=== PATIENT | female | born 1995 | race Caucasian/White ===

== ENCOUNTER 2018-03-03 14:28 | Inpatient (IN) | payer OTHER ==
[2018-03-03 15:05] VITALS: BMI 46.0
--- NOTE | 2018-03-03 15:08 | PDOC.LDHP ---
Labor and Delivery H&P Chief complaint: contractions HPI: 22 yo @ 39.3wks by LMP c/w 29.6wk US presents with contractions. Patient stated that the contractions started around 11 this morning and woke her up from her sleep. She says they are nonpainful but have been occurring regularly over the course of the day. She denies any associated nausea, headache, visions changes, bleeding or vaginal discharge other than her mucus plug. Patient was seen in clinic by Dr. Panchal yesterday and was noted to be 3cm dilated and had her membranes stripped. Current gestational age (weeks): 39 (39.3) Due date: 03/07/18 Dating criteria: last menstrual period (c/w 29.6wk US) Grav: 1 Para: 0 OB History Details: none Current complications: other (glucose intolerance w/ 1 hr GTT BG of 153) Abnormal US findings: No Current medications: pre- vitamins Previous surgical history: none Social history: none - Physical Exam Vital signs reviewed and normal: yes General: NAD Heart: RRR Lungs: nonlabored breathing Abdomen: gravid Extremeties: no edema FHT: category 2 (minimal variability) [place] contractions every: 5-10 minutes - Vaginal Exam cm dilated: 4 Effacement: 50% Station: -3 (@ 1445) - OB Labs Blood type: A RH: positive Antibody Screen: negative HIV: negative RPR: negative HEPSAg: negative 1 hour GCT: positive (154) GBS: positive Urine drug screen: not done Rubella: immune - Assessment 22YO @ 39.3 weeks by LMP consistent with 29.6 week US who presents with a chief complaint of contractions that have been occurring regularly since 11AM this morning. - Plan -: Plan: 1. SIUP presenting with contractions in latent labor: - OBS in L&D for 2 hrs and recheck for cervical change. - category 2 strip, will PO challenge and continue to monitor via NST. - likely will d/c home if no change after 2 hours. 2. glucose intolerance: - 1hr GTT elevated at 153. - late to care & did not f/u with 3 hr GTT. - Per patient BG levels have been WNL at last several clinic visits. 3. Obesity: - Will counselor aide on diet and exercise. 4. GBS + : - Aware. - Will initiate treatment only if patient is admitted. This H&P was completed with Janine Roberts MD. <Elza Brownlee - Last Filed: 03/03/18 16:05> <Dorothea Stern - Last Filed: 03/03/18 17:28> Allergies/Adverse Reactions: Allergies Allergy/AdvReac Type Severity Reaction Status Date / Time No Known Allergies Allergy Verified 03/03/18 15:01 Attending Addendum - Attending Addendum Date/Time: 03/03/18 8160 I personally evaluated the patient and discussed the management with Dr. Gardner /Armando I agree with the History, Examination, Assessment and Plan documented above with any addition or exceptions noted below- 22 yo @ 39.1 weeks presented c /o ctx every 5-6 minutes, not-painful. Denies any LOF, VB. (+) FM. Afebrile VSS. SVE 4/50%/-3; FHTs- 145/min-mod variability/(+) accels/ no decels [place]- ctx q6-7 minutes. A/P: 1) IUP @39.1 weeks with contractions - recheck in 2 hours. FHTs- Category 2 improved after juice and crackers to Category 1 <Dorothea Stern - Last Filed: 03/03/18 17:28>
--- NOTE | 2018-03-03 20:14 | PDOC.LDPN ---
Labor & Delivery Progress Note - Subjective Subjective: comfortable, vaginal pressure - Objective Vital signs reviewed and normal: yes (one isolated inc. in BP systolic 141, but other pressures have been WNL.) General: NAD, resting Uterine fundus: non tender Dilation: 5 Effacement: 75% Station: -1 FHT: category 1 (150/mod/+accels) [place] contractions every: inadequate ctx - Assessment (1) Term Code(s): Z34.80 - ENCOUNTER FOR SUPRVSN OF NORMAL , UNSP TRIMESTER Current Visit: Yes Status: Acute (2) Glucose intolerance Code(s): E74.39 - OTHER DISORDERS OF INTESTINAL CARBOHYDRATE ABSORPTION Current Visit: Yes Status: Acute (3) Obesity Code(s): E66.9 - OBESITY, UNSPECIFIED Current Visit: Yes Status: Acute Plan: continue plan of care -: 22 @ 39.3 weeks by LMP consistent w/ 29.6wk US here for reported contractions and now with cervical changes. 1. IUP, patiño, term, primigravida - @ 20:00 -short period of minimum variability will order BPP 2. Glucose intolerance vs. questionable A1GDM -Clinic records show failed 1hr GTT, unable to complete 3hrGTT, patient did not bring in home glucose logs -Glucose logs have been WNL in clinic 3. Maternal obesity 4. Increased BP without h/o of chronic or gestational hypertension -Isolated BP systolic reading of 141/80 @ 17:23 -Other BP readings have been good in 120s-low 130s -Clinic visit yesterday showed BP of 144/90 -On 02/19 clinic visit BP of 143/93 (37w5d) -Will order preE work up: CBC, CMP, BPP, Protein/Creat ratio 5. LGSIL -Plan for repeat colpo at 6 weeks 6. Late Care 8. GBS positive -PCN when in labor <Constance Kate - Last Filed: 03/03/18 20:53> Attending Addendum - Attending Addendum Date/Time: 03/03/182042 I personally evaluated the patient and discussed the management with Dr. Kate I agree with the History, Examination, Assessment and Plan documented above with any addition or exceptions noted below. Continue current management. Cat 1 to Cat 2 tracing. BPP 04/01. GBS pos will need PCN. [place] <Goldie Bernard - Last Filed: 03/04/18 06:44>
[2018-03-03 21:18] LABS: #Eosinphils 0.1 thou/uL (0.0-0.7); #Lymphocytes 1.6 thou/uL (1.20-3.40); #Monocytes 0.7 thou/uL (0.11-0.59); #Neutrophils 9.9 thou/uL (1.40-6.50); %Basophils 0.2 % (0.0-1.0); %Eosinophils 0.6 % (0.0-10.0); %Lymphocytes 13.2 % (21.0-51.0); Hemoglobin 12.8 g/dL (12.0-16.0); Mean Corpuscular HGB CONC 34.9 g/dL (32.0-36.0); Mean Corpuscular Hemoglobin 29.8 pg (27.0-31.0); Mean Corpuscular Volume 85.2 fL (78.0-98.0); Mean Platelet Volume 8.5 fL (7.4-10.4); Platelet Count 232 thou/uL (130-400); RBC Distribution Width 13.3 % (11.5-14.5); White Blood Cell (WBC) Count 12.4 thou/uL (4.8-10.8)
[2018-03-03 21:36] LABS: ALT (SGPT) 9 U/L (8-55); AST (SGOT) 10 U/L (5-34); Albumin 3.2 g/dL (3.5-5.0); Alkaline Phosphatase 98 U/L (40-150); Anion Gap 12 mmol/L (10-20); BUN (Urea Nitrogen) 9 mg/dL (7.0-18.7); Bilirubin, Total 0.2 mg/dL (0.2-1.2); Calc. Creatinine Clearance 281 mL/min (70-130); Calcium 9.1 mg/dL (7.8-10.44); Carbon Dioxide 20 mmol/L (22-29); Chloride 108 mmol/L (98-107); Estimated GFR-MDRD Greater than 90; Globulin 2.8 g/dL (2.4-3.5); Glucose 96 mg/dL (70-105); Potassium 3.9 mmol/L (3.5-5.1); Sodium 136 mmol/L (136-145)
--- NOTE | 2018-03-03 21:38 | ULT ---
BIOPHYSICAL PROFILE 03/03/18 COMPARISON: None. HISTORY: 22-year-old female with a nonreassuring FHT. TECHNIQUE: Limited sonographic assessment of the gravid uterus obtained to perform a biophysical profile. FINDINGS: A single intrauterine gestation is present demonstrating a vertex presentation. The placenta is locat ed anteriorly with no evidence for previous or abruption. heart rate is 149 beats per minute. Amniotic fluid index is 7.1 cm. The locomotive crane operator helper reports 2 out of 2 score for tone, breath ing, movement and amniotic fluid. IMPRESSION: Live intrauterine gestation demonstrating a normal 8 out of 8 biophysical profile. POS: [facility]
--- NOTE | 2018-03-03 22:47 | PDOC.LDPN ---
Labor & Delivery Progress Note - Subjective Subjective: comfortable, vaginal pressure, no concerns - Objective Vital signs reviewed and normal: yes General: NAD, resting Uterine fundus: non tender Dilation: 6 Effacement: 75% Station: -1 FHT: category 1 (150/mod/+accels) - Assessment (1) Term Code(s): Z34.80 - ENCOUNTER FOR SUPRVSN OF NORMAL , UNSP TRIMESTER Current Visit: Yes Status: Acute (2) Glucose intolerance Code(s): E74.39 - OTHER DISORDERS OF INTESTINAL CARBOHYDRATE ABSORPTION Current Visit: Yes Status: Acute (3) Obesity Code(s): E66.9 - OBESITY, UNSPECIFIED Current Visit: Yes Status: Acute (4) Active labor at term Code(s): PLF1029 - Current Visit: Yes Status: Acute Plan: continue plan of care -: 22 @ 39.3 weeks by LMP consistent w/ 29.6wk US here for reported contractions and now with cervical changes. 1. IUP, patiño, term, primigravida, Active labor - @ 2230 -BPP 04/01 -6cm dilated, +contractions -Will admit for active labor and plan to start pitocin -Discussed with patient who agrees with plan 2. Glucose intolerance vs. questionable A1GDM -Clinic records show failed 1hr GTT, unable to complete 3hrGTT, patient did not bring in home glucose logs -Glucose logs have been WNL in clinic 3. Maternal obesity 4. Increased BP without h/o of chronic or gestational hypertension -Isolated BP systolic reading of 141/80 @ 17:23 -Other BP readings have been good in 120s-low 130s -Clinic visit yesterday showed BP of 144/90 -On 02/19 clinic visit BP of 143/93 (37w5d) -Reviewed preE workup labs-all were wnl 5. LGSIL -Plan for repeat colpo at 6 weeks 6. Late Care 8. GBS positive -Initiating PCN ppx, first dose <Constance Kate - Last Filed: 03/03/18 23:28> Attending Addendum - Attending Addendum Date/Time: 03/03/18 4480 I personally evaluated the patient and discussed the management with Dr. Kate I agree with the History, Examination, Assessment and Plan documented above with any addition or exceptions noted below. Tracing reassuring, but continue close monitoring. Intermittent cat 2. Now 6 cm. Will augment with pitocin as needed. GBS pos now on PCN [place] <Goldie Bernard - Last Filed: 03/04/18 06:48>
[2018-03-03 23:04] LABS: Creatinine, Urine 42.04 mg/dL (47-110); Protein, Urine Random Quant Less than 10 mg/dL
[2018-03-03] MEDS ORDERED: Ibuprofen 800 MG TAB PO PRN (23:11)
[2018-03-03] MEDS ORDERED: NS / Oxytocin 40 units/1000ml 1,000 ML IV PRN (23:11)
[2018-03-03] MEDS ORDERED: Ondansetron HCl/PF 4 MG/2 ML Vial IVP PRN (23:11)
[2018-03-03] MEDS ORDERED: Lidocaine 1% (PF) 30 ML VIAL SC PRN (23:11)
[2018-03-03] MEDS ORDERED: Acetaminophen 500 MG TAB PO PRN (23:11)
[2018-03-03] MEDS ORDERED: Penicillin G Potassium 5 MILL.UNITS in Sodium Chloride 0.9% 100 ML IVPB SCH (23:15)
[2018-03-04] MEDS: Lactated Ringer's 1,000 ML IV SCH ×3 (00:15→07:25)
[2018-03-04] MEDS ORDERED: Penicillin G 2.5 MILL.units 2.5 MILL.UNITS in Premix Bag 1 BAG IVPB SCH (01:00)
[2018-03-04 01:20] LABS: HBSAg Index 0.15 S/CO (0-0.99); HIV (1/2) Antibody/Antigen Non-Reactive (NonReactive); Hep B Surf Ag Non-Reactive S/CO (NonReactive); Syphilis Antibody Nonreactive (Nonreactive); Syphilis Antibody Index 0.06 S/CO (<1.00 Non-Reactive)
--- NOTE | 2018-03-04 01:35 | PDOC.LDPN ---
Labor & Delivery Progress Note - Subjective Subjective: comfortable - Objective Vital signs reviewed and normal: yes General: NAD, resting FHT: category 1 (140/mod/+accels) - Assessment (1) Term Code(s): Z34.80 - ENCOUNTER FOR SUPRVSN OF NORMAL , UNSP TRIMESTER Current Visit: Yes Status: Acute (2) Glucose intolerance Code(s): E74.39 - OTHER DISORDERS OF INTESTINAL CARBOHYDRATE ABSORPTION Current Visit: Yes Status: Acute (3) Obesity Code(s): E66.9 - OBESITY, UNSPECIFIED Current Visit: Yes Status: Acute (4) Active labor at term Code(s): [id number] - Current Visit: Yes Status: Acute Plan: continue plan of care -: 22 @ 39.3 weeks by LMP consistent w/ 29.6wk US here for reported contractions and now with cervical changes. 1. IUP, patiño, term, primigravida, Active labor - @ 2230 -BPP 04/01 -6cm dilated, +contractions -Patient is doing well, reports feeling increased contractions -Stated desire to not start pitocin at this time and allow for labor to proceed naturally 2. Glucose intolerance vs. questionable A1GDM -Clinic records show failed 1hr GTT, unable to complete 3hrGTT, patient did not bring in home glucose logs -Glucose logs have been WNL in clinic 3. Maternal obesity 4. Increased BP without h/o of chronic or gestational hypertension -Isolated BP systolic reading of 141/80 @ 17:23 -Other BP readings have been good in 120s-low 130s -Clinic visit yesterday showed BP of 144/90 -On 02/19 clinic visit BP of 143/93 (37w5d) -Reviewed preE workup labs-all were wnl 5. LGSIL -Plan for repeat colpo at 6 weeks 6. Late Care 8. GBS positive -Received first dose of PCN -Ordered next dose at 5:00am <Constance Kate - Last Filed: 03/04/18 01:35> Attending Addendum - Attending Addendum Date/Time: 03/04/18 0148 I personally evaluated the patient and discussed the management with Dr. Kate I agree with the History, Examination, Assessment and Plan documented above with any addition or exceptions noted below. Now 39.4 wks. Will start PCN for augmentation. Continue to monitor closely. Cat 1 tracing but still with intermittent cat 2. Continue PCN. [place] <Goldie Bernard - Last Filed: 03/04/18 06:50>
--- NOTE | 2018-03-04 04:44 | PDOC.LDPN ---
Labor & Delivery Progress Note - Subjective Subjective: comfortable - Objective Vital signs reviewed and normal: yes General: NAD, resting Uterine fundus: non tender Dilation: 6-7 Effacement: 75% Station: -1 FHT: category 1 (150/mod/+accels) Other exam findings: intact, fetus cephalic - Assessment (1) Term Code(s): Z34.80 - ENCOUNTER FOR SUPRVSN OF NORMAL , UNSP TRIMESTER Current Visit: Yes Status: Acute (2) Glucose intolerance Code(s): E74.39 - OTHER DISORDERS OF INTESTINAL CARBOHYDRATE ABSORPTION Current Visit: Yes Status: Acute (3) Obesity Code(s): E66.9 - OBESITY, UNSPECIFIED Current Visit: Yes Status: Acute (4) Active labor at term Code(s): LTE3068 - Current Visit: Yes Status: Acute Plan: labor augmentation -: 22 @ 39.4 weeks by LMP consistent w/ 29.6wk US here for reported contractions and now with cervical changes. 1. IUP, patiño, term, primigravida, Active labor -6.5/75/-1 @ 4:30 -BPP 8 -Inadequate contractions, labor augmented with pitocin per protocol -Patient is doing well, reports feeling increased contractions -Planning on epidural for pain 2. Glucose intolerance vs. questionable A1GDM -Clinic records show failed 1hr GTT, unable to complete 3hrGTT, patient did not bring in home glucose logs -Glucose logs have been WNL in clinic -Bedside glucose checks have been wnl 3. Maternal obesity -Recommend diet, exercise and breast feeding 4. Increased BP without h/o of chronic or gestational hypertension -Isolated BP systolic reading of 141/80 @ 17:23 -Other BP readings have been good in 120s-low 130s -Clinic visit yesterday showed BP of 144/90 -On 02/19 clinic visit BP of 143/93 (37w5d) -Reviewed preE workup labs-all were wnl -Remains asymptomatic 5. LGSIL -Plan for repeat colpo at 6 weeks 6. Late Care 8. GBS positive -Received first dose of PCN -Ordered next dose at 5:00am <Constance Kate - Last Filed: 03/04/18 04:44> Attending Addendum - Attending Addendum Date/Time: 03/04/18 8252 I personally evaluated the patient and discussed the management with Dr. Kate I agree with the History, Examination, Assessment and Plan documented above with any addition or exceptions noted below. Now 39.4 wks Making slow change. Not able to augment at this time with pitocin due to intermittent cat 2 tracing. On PCN. Continue maternal resuscitation measures as needed. [place] <Goldie Bernard - Last Filed: 03/04/18 06:52>
[2018-03-04] MEDS ORDERED: NS w/ Oxytocin 10 units 500 ML IV SCH (04:45)
[2018-03-04] MEDS: Penicillin G 2.5 MILL.units 2.5 MILL.UNITS in Premix Bag 1 BAG IVPB SCH ×2 (04:52→08:32)
--- NOTE | 2018-03-04 05:35 | PDOC.LDPN ---
Labor & Delivery Progress Note - Objective Vital signs reviewed and normal: yes - Assessment (1) Active labor at term Code(s): [id number] - Current Visit: Yes Status: Acute (2) Term Code(s): Z34.80 - ENCOUNTER FOR SUPRVSN OF NORMAL , UNSP TRIMESTER Current Visit: Yes Status: Acute (3) Glucose intolerance Code(s): E74.39 - OTHER DISORDERS OF INTESTINAL CARBOHYDRATE ABSORPTION Current Visit: Yes Status: Acute (4) Obesity Code(s): E66.9 - OBESITY, UNSPECIFIED Current Visit: Yes Status: Acute -: A&P: 23YO @ 39.4 weeks by LMP consistent w/ 29.6 wk U/S who presented to L&D yesterday due to contractions that started around 11AM yesterday now with cervical changes. 1. SIUP, term, primagravida, active labor 2. glucose intolerance vs. questionable A1GDM 3. maternal obesity 4. Increased BP without h/o chronic or gestational HTN 5. GBS + 6. LGISL 7. late care
--- NOTE | 2018-03-04 06:04 | PDOC.LDPN ---
Labor & Delivery Progress Note - Subjective Subjective: painful contractions - Objective Vital signs reviewed and normal: yes General: resting, breathing through contractions Uterine fundus: palpable contractions Dilation: 6 Effacement: 90% Station: 0 FHT: category 2, late decelerations, absent or minimal variables [place] contractions every: every 3min AROM: clear fluid IUPC placed: yes FSE placed: yes Resuscitative measures: maternal oxygen, maternal IV fluids, maternal position change - Assessment (1) Term Code(s): Z34.80 - ENCOUNTER FOR SUPRVSN OF NORMAL , UNSP TRIMESTER Current Visit: Yes Status: Acute (2) Glucose intolerance Code(s): E74.39 - OTHER DISORDERS OF INTESTINAL CARBOHYDRATE ABSORPTION Current Visit: Yes Status: Acute (3) Obesity Code(s): E66.9 - OBESITY, UNSPECIFIED Current Visit: Yes Status: Acute (4) Active labor at term Code(s): [id number] - Current Visit: Yes Status: Acute -: 22 @ 39.4 weeks by LMP consistent w/ 29.6wk US here for reported contractions and now with cervical changes. 1. IUP, patiño, term, primigravida, Active labor -/0 @6:00 -BPP /8 -AROM at 6:05, clear, placed in IUPS, FES -Category 2 strip with maternal resuscitation, will reassess in 30min 2. Glucose intolerance vs. questionable A1GDM -Clinic records show failed 1hr GTT, unable to complete 3hrGTT, patient did not bring in home glucose logs -Glucose logs have been WNL in clinic -Bedside glucose checks have been wnl 3. Maternal obesity -Recommend diet, exercise and breast feeding 4. Increased BP without h/o of chronic or gestational hypertension -Isolated BP systolic reading of 141/80 @ 17:23 -Other BP readings have been good in 120s-low 130s -Clinic visit yesterday showed BP of 144/90 -On 02/19 clinic visit BP of 143/93 (37w5d) -Reviewed preE workup labs-all were wnl -Remains asymptomatic 5. LGSIL -Plan for repeat colpo at 6 weeks 6. Late Care 8. GBS positive -Received first dose of PCN <Constance Kate - Last Filed: 03/04/18 06:04> Attending Addendum - Attending Addendum Date/Time: 03/04/18 0653 I personally evaluated the patient and discussed the management with Dr. Kate I agree with the History, Examination, Assessment and Plan documented above with any addition or exceptions noted below. 22 yo female at 39.4 wks Cat 2 tracing with minimal variability. AROM with clear fluid. FSE and IUPC placed. Fetus responded to scalp stim easily. Now cat 1. Continue close monitoring. Discussed risk and possible complications with patient. Understands possibility of need for delivery. Position change, IVFs, maternal O2. No longer having elevated BP. Now s/p 2nd dose of PCN, adequately treated. [place] <Goldie Bernard - Last Filed: 03/04/18 06:57>
[2018-03-04] MEDS ORDERED: Bupivacaine 0.75% 13.4 ML, fentaNYL Citrate/PF 400 MCG in Sodium Chloride 0.9% 78.6 ML EPIDURAL SCH ×2 (06:30→11:15)
[2018-03-04] MEDS ORDERED: Butorphanol Tartrate 1 MG/ML VIAL ONE (07:03)
[2018-03-04] MEDS ORDERED: Butorphanol Tartrate 1 MG/ML VIAL SLOW IVP PRN (07:03)
--- NOTE | 2018-03-04 08:11 | PDOC.LDPN ---
Labor & Delivery Progress Note - Subjective Subjective: comfortable, other (Comfortable with epidural) - Objective Vital signs reviewed and normal: yes General: resting Uterine fundus: non tender Dilation: 6.5 Effacement: 100% Station: -1 FHT: category 2 (2 minute to sara of 70 while on her back and five minutes later 1.5 minute decel to sara of 90. Variability maintained. ), early decelerations, variability present [place] contractions every: 2-3 minutes Resuscitative measures: maternal position change (On her back at time of decels. ) - Assessment (1) Active labor at term Code(s): [id number] - Current Visit: Yes Status: Acute Comment: Has not made significant change since last check Johanne spontaneously but MVUs not adequate Unable to start pitocin to augment at this time due to cat II tracing. Tracing is overall reassuring Attempt to start pitocin once tracing is reassuring GBS positive on prophylaxis Plan: continue plan of care, pitocin for augmentation, resuscitative measures
[2018-03-04] MEDS ORDERED: NS / Oxytocin 40 units/1000ml 1,000 ML ONE (08:59)
[2018-03-04] MEDS ORDERED: Lidocaine 1% (PF) 30 ML VIAL ONE (08:59)
[2018-03-04] MEDS ORDERED: ePHEDrine/0.9% NaCl/PF SYRINGE 50 mg/10 ml SLOW IVP PRN (10:54)
[2018-03-04] MEDS ORDERED: Lactated Ringer's 500 ML IV PRN (10:54)
[2018-03-04] MEDS ORDERED: Naloxone HCl 0.4 mg/ml Vial IVP PRN ×2 (10:54)
[2018-03-04] MEDS ORDERED: Eucerin (Mineral Oil/Petrolatum,White) 30 gm Jar TOP PRN (10:54)
[2018-03-04] MEDS ORDERED: diphenhydrAMINE 50 MG/ML VIAL IVP PRN (10:54)
[2018-03-04] MEDS ORDERED: Ondansetron HCl/PF 4 MG/2 ML Vial IVP PRN (10:54)
[2018-03-04] MEDS ORDERED: Acetaminophen 325 MG TAB PO PRN (10:54)
[2018-03-04] MEDS ORDERED: Promethazine HCl 25 MG/ML VIAL IM PRN (10:54)
[2018-03-04] MEDS ORDERED: Communication Order-Pharmacy FS SCH (11:00)
[2018-03-04] MEDS ORDERED: fentaNYL Citrate/PF 400 MCG, Bupivacaine 0.5% 20 ML in Sodium Chloride 0.9% 72 ML EPIDURAL SCH (11:00)
--- NOTE | 2018-03-04 11:40 | PDOC.OPDEL ---
OB Operative/Delivery Note Delivery Dr/Surgeon: Abdulkadir Assist: Armando Pre-Delivery Diagnosis: active labor Procedure/Post Delivery Dx: spontaneous vaginal delivery Weeks gestation: 39 Anesthesia: epidural - Findings A - 1 min: 8 - 5 min: 9 - Additional Findings/Plan Placenta delivered: spontaneous Repaired Obstetrical Laceration: 2nd degree (2nd degree laceration repaired in usual fashion using 3-0 vicryl. Left labial repaired in running fashion using 3- 0 vicryl) Estimated blood loss: 300 Compilations/Other Findings: Uncomplicated at term of viable male fetus in OA position. Post delivery plan: routine recovery
[2018-03-04] MEDS ORDERED: Adacel (T-DAP) 0.5 ML VIAL IM ONE (12:33)
[2018-03-04] MEDS ORDERED: Milk Of Magnesia 30 ML UDCUP PO PRN (12:33)
[2018-03-04] MEDS ORDERED: diphenhydrAMINE 25 MG CAP PO PRN (12:33)
[2018-03-04] MEDS ORDERED: Lanolin Ointment 7 GM TUBE TOP PRN (12:33)
[2018-03-04] MEDS ORDERED: Bisacodyl 10 MG SUPP PR PRN (12:33)
[2018-03-04] MEDS ORDERED: NS / Oxytocin 40 units/1000ml 1,000 ML IV SCH (12:33)
[2018-03-04] MEDS ORDERED: Benzocaine/Menthol 20-0.5% 60 ML CAN TOP PRN (12:33)
[2018-03-04] MEDS: Ibuprofen 800 MG TAB PO SCH ×2 (14:59→21:54)
[2018-03-04] MEDS: Ferrous Sulfate 325 MG TAB PO SCH (16:56)
[2018-03-04] MEDS: Docusate Calcium (SURFAK) 240 MG CAP PO SCH (21:54)
--- NOTE | 2018-03-05 05:34 | PDOC.PP ---
Post Progress Note Post Day #: 1 Subjective: Patient states that she feels well and states that baby is doing well. Only has pain when she urinates. Is voiding spontaneously without any trouble. Has been up and walking this morning and is passing gas but has not yet had a BM. Denies passing any large clots but is still having vaginal bleeding comparable to blood loss during her period. States she has been doing ok with breast feeding. Has had more success with left breast compared to the right. PO intake tolerated: yes Flatus: yes Ambulation: yes Vital Signs (12 hours) Temp Pulse Resp BP 03/05/18 02:19 98.1 F 85 18 123/59 L 03/05/18 00:00 98.2 F 85 20 03/04/18 20:10 98.1 F 85 18 117/58 L 03/04/18 20:00 98.2 F 88 20 03/04/18 17:47 98.2 F 88 20 108/59 L Weight Weight 117.934 kg - Physical Examination General: NAD Cardiovascular: RRR Respiratory: clear to auscultation bilaterally, non-labored breathing Abdominal: + bowel sounds, no distention, appropriately TTP (nontender to deep palation) Fundus firm & at: Fundus firm and palpable below the umbilicus Extremities: negative homans (B) Skin: no rash Neurological: no gross focal deficits Psychiatric: A&Ox3, normal affect Result Diagrams: 03/03/18 21:09 03/03/18 21:09 Additional Labs: Post Labs Blood Type A POSITIVE 03/04/18 00:33 Hep Bs Antigen Non-Reactive S/CO (NonReactive) 03/04/18 00:33 (1) Active labor at term Code(s): [id number] - Status: Resolved (2) Term Code(s): Z34.80 - ENCOUNTER FOR SUPRVSN OF NORMAL , UNSP TRIMESTER Status: Resolved (3) Glucose intolerance Code(s): E74.39 - OTHER DISORDERS OF INTESTINAL CARBOHYDRATE ABSORPTION Status : Acute (4) Obesity Code(s): E66.9 - OBESITY, UNSPECIFIED Status: Chronic - Assessment/Plan A&P: 22 YO PP day #1 s/p of a TAGA male fetus. 1. day#1 s/p - Continue carb consistent diet as tolerated. - Passing gas but will continue with stool softener & encourage ambulation to induce a BM. - apartment leasing consultant to see today as patient is a new mom planning to breast feed. - Likely will be able to go home tomorrow AM. 2. Obesity - Encourage diet, weight loss, and breast feeding. - Continue carb consistent. 3. Glucose Intolerance - Resolved. - All BG levels have been WNL since admission. - d/c POC glucose checks <Janine Roberts - Last Filed: 03/05/18 06:32> Vital Signs (12 hours) Temp Pulse Resp BP 03/05/18 08:00 98.6 F 80 18 03/05/18 07:45 98.6 F 80 18 114/59 L 03/05/18 04:00 98.1 F 85 18 03/05/18 02:19 98.1 F 85 18 123/59 L 03/05/18 00:00 98.2 F 85 20 Weight Weight 117.934 kg Result Diagrams: 03/03/18 21:09 03/03/18 21:09 Additional Labs: Post Labs Blood Type A POSITIVE 03/04/18 00:33 Hep Bs Antigen Non-Reactive S/CO (NonReactive) 03/04/18 00:33 (1) Active labor at term Code(s): [id number] - Status: Resolved Comment: Has not made significant change since last check [place] spontaneously but MVUs not adequate Unable to start pitocin to augment at this time due to cat II tracing. Tracing is overall reassuring Attempt to start pitocin once tracing is reassuring GBS positive on prophylaxis <Elma Panchal - Last Filed: 03/05/18 08:41> Attending Addendum - Attending Addendum Date/Time: 03/05/18 0840 I personally evaluated the patient and discussed the management with Dr. Roberts I agree with the History, Examination, Assessment and Plan documented above with any addition or exceptions noted below. 22yo [id number] PPD #1 s/p uncomplicated . Doing well and meeting appropriate milestones. Continue routine care. Anticipate d/c to home tomorrow. <Elma Panchal - Last Filed: 03/05/18 08:41>
[2018-03-05] MEDS: Ibuprofen 800 MG TAB PO SCH ×3 (06:39→21:38)
[2018-03-05] MEDS: Ferrous Sulfate 325 MG TAB PO SCH ×2 (07:22→15:56)
[2018-03-05] MEDS: Docusate Calcium (SURFAK) 240 MG CAP PO SCH ×2 (08:24→21:38)
[2018-03-05] MEDS: Prenatal Vitamin 1 TAB PO SCH (08:24)
[2018-03-05] MEDS ORDERED: Lidocaine 2% MPF 10 ML AMP (For Epidural Use) ONE (15:24)
--- NOTE | 2018-03-06 06:16 | PDOC.PP ---
Post Progress Note Post Day #: 2 Subjective: Patient has no complaints. Says breast feeding is going well and she met with the regulatory consultant yesterday afternoon. Has had a BM and reports mild burning with urination. Ambulating & tolerating food and liquids PO. Reports still having just a scant amount of bleeding. Plans to use Depo for control following discharge. Ok with going home today. Says baby will f/u with Dr. Panchal on Friday and she will f/u with her in 2-4 weeks. PO intake tolerated: yes Flatus: yes Ambulation: yes Vital Signs (12 hours) Temp Pulse Resp BP 03/05/18 20:40 98.1 F 81 22 H 122/60 Weight Weight 117.934 kg - Physical Examination General: NAD Cardiovascular: no m/r/g, RRR Respiratory: clear to auscultation bilaterally, non-labored breathing Abdominal: + bowel sounds, lochia, no distention Skin: no rash Perineum: No gross edema of labia noted on exam. Neurological: no gross focal deficits Psychiatric: A&Ox3, normal affect Result Diagrams: 03/03/18 21:09 03/03/18 21:09 Additional Labs: Post Labs Blood Type A POSITIVE 03/04/18 00:33 Hep Bs Antigen Non-Reactive S/CO (NonReactive) 03/04/18 00:33 (1) Active labor at term Code(s): AFQ4880 - Status: Resolved (2) Term Code(s): Z34.80 - ENCOUNTER FOR SUPRVSN OF NORMAL , UNSP TRIMESTER Status: Resolved (3) Glucose intolerance Code(s): E74.39 - OTHER DISORDERS OF INTESTINAL CARBOHYDRATE ABSORPTION Status : Resolved (4) Obesity Code(s): E66.9 - OBESITY, UNSPECIFIED Status: Chronic QualifierTitle: Obesity type: due to excess calories Obesity classification: adult class 3 (BMI >= 40) Serious obesity comorbidity presence : without serious comorbidity Body mass index: BMI 45.0-49.9 Qualified Code( s): E66.01 - Morbid (severe) obesity due to excess calories; Z68.42 - Body mass index (BMI) 45.0-49.9, adult; Z68.42 - Body mass index (BMI) 45.0-49.9, adult; Z68.42 - Body mass index (BMI) 45.0-49.9, adult; Z68.42 - Body mass index (BMI) 45.0-49.9, adult - Assessment/Plan A&P: 22YO PP day #2 s/p of TAGA male fetus @ 39.4 weeks. 1. day #2 s/p : - Continue ambulating & eating and drinking PO as tolerated. - Continue breast feeding & pumping per regulatory consultant's recs. - f/u with OB/PCP, Dr. Panchal, in 2 weeks. 2. Obesity: - Will encourage to continue breast feeding. - Will encourage regular exercise and weight loss. 3. h/o glucose intolerance: - BG levels have been normal over course of hospital stay - Continue w/ consistent carb diet. <Janine Roberts - Last Filed: 03/06/18 07:05> Weight Weight 117.934 kg Result Diagrams: 03/03/18 21:09 03/03/18 21:09 Additional Labs: Post Labs Blood Type A POSITIVE 03/04/18 00:33 Hep Bs Antigen Non-Reactive S/CO (NonReactive) 03/04/18 00:33 <Goldie Bernard - Last Filed: 03/07/18 08:40> Attending Addendum - Attending Addendum Date/Time: 03/06/18 0838 I personally evaluated the patient and discussed the management with Dr. Roberts I agree with the History, Examination, Assessment and Plan documented above with any addition or exceptions noted below. 22 yo female s/p PPD#2 Doing well. No complaints. Lochia mild. Fundus firm below umbilicus. Nontender. BP WNL. H&H stable. . No evidence of vaginal edema. Laceration healing well. Ok to d/c to home later with infant. Follow up with PCP in 2 wks. [place] <Goldie Bernard - Last Filed: 03/07/18 08:40>
[2018-03-06] MEDS: Ibuprofen 800 MG TAB PO SCH ×2 (06:20→14:10)
[2018-03-06 08:04] VITALS: BP 127/61; TEMP 98.5
[2018-03-06] MEDS: Docusate Calcium (SURFAK) 240 MG CAP PO SCH (09:06)
[2018-03-06] MEDS: Ferrous Sulfate 325 MG TAB PO SCH (09:06)
[2018-03-06] MEDS: Prenatal Vitamin 1 TAB PO SCH (09:06)
== END 2018-03-06 15:50 | disposition home or self-care (01) | DRG 774 ==
LOC: L&D/OP 14:28 → L&D 23:44 → 3SW 03-04 13:40
PROVIDERS: ADMIT Student in an Organized Health Care Education/Training Program; ATTEND Student in an Organized Health Care Education/Training Program
PROC: 10E0XZZ Delivery of Products of Conception, External Approach (ICD-10-PCS; principal; 2018-03-04)
PROC: 10907ZC Drainage of Amniotic Fluid, Therapeutic from Products of Conception, Via Natural or Artificial Opening (ICD-10-PCS; 2018-03-04)
PROC: 0KQM0ZZ Repair Perineum Muscle, Open Approach (ICD-10-PCS; 2018-03-04)
DX: O70.1 Second degree perineal laceration during delivery (principal); O99.42 Diseases of the circulatory system complicating childbirth; Z37.0 Single live birth; Z68.42 Body mass index [BMI] 45.0-49.9, adult; O76 Abnormality in fetal heart rate and rhythm complicating labor and delivery; O99.824 Streptococcus B carrier state complicating childbirth; O24.429 Gestational diabetes mellitus in childbirth, unspecified control; O28.2 Abnormal cytological finding on antenatal screening of mother; R87.612 Low grade squamous intraepithelial lesion on cytologic smear of cervix (LGSIL); O99.214 Obesity complicating childbirth; Z3A.39 39 weeks gestation of pregnancy; E66.9 Obesity, unspecified; R03.0 Elevated blood-pressure reading, without diagnosis of hypertension; O99.814 Abnormal glucose complicating childbirth; R73.02 Impaired glucose tolerance (oral)
CPT/HCPCS: 36415; 36416; 51702; 59025; 76819; 80053; 82570; 84156; 85025; 86780; 86850; 86900; 86901; 87340; 87389; 99285; A4216; J0595; J2001; J2540; J3010; J7050